=== PATIENT | female | born 1960 | race Caucasian/White ===

== ENCOUNTER → 2016-07-31 | Outpatient (REF) | payer MEDICARE, MEDICAID, OTHER ==
[2016-07-31 16:27] LABS: MEAN CORPUSCULAR HEMOGLOBIN 31.6 pg (27.0-33.0); MEAN CORPUSCULAR HGB CONC 33.3 g/dl (32.0-36.5); MEAN CORPUSCULAR VOLUME 94.7 fl (80.0-96.0); RED CELL DISTRIBUTION WIDTH 13.2 % (11.5-14.5); WHITE BLOOD COUNT 7.5 K/mm3 (4.0-10.0)
[2016-07-31 16:51] LABS: ALBUMIN 3.8 GM/DL (3.2-5.2); ALBUMIN/GLOBULIN RATIO 1.31 (1.00-1.93); ALKALINE PHOSPHATASE 97 U/L (45-117); ALT/SGPT 15 U/L (12-78); ANION GAP 9 MEQ/L (8-16); AST/SGOT 19 U/L (15-37); BILIRUBIN,TOTAL 0.6 MG/DL (0.2-1.0); BLOOD UREA NITROGEN 9 MG/DL (7-18); CALCIUM LEVEL 8.6 MG/DL (8.5-10.1); CARBON DIOXIDE LEVEL 30 MEQ/L (21-32); CHLORIDE LEVEL 102 MEQ/L (98-107); CHOLESTEROL LEVEL 185 MG/DL (<200); CREATININE FOR GFR 0.67 MG/DL (0.55-1.02); GLOMERULAR FILTRATION RATE > 60.0 (>51); GLUCOSE, FASTING 83 MG/DL (70-105); MAGNESIUM LEVEL 2.1 MG/DL (1.8-2.4); POTASSIUM SERUM 3.9 MEQ/L (3.5-5.1); SODIUM LEVEL 141 MEQ/L (136-145); TOTAL PROTEIN 6.7 GM/DL (6.4-8.2); TRIGLYCERIDES LEVEL 113 MG/DL (<150)
[2016-07-31 16:59] LABS: VITAMIN B12 LEVEL 791 PG/ML (247-911)
[2016-08-08 00:06] LABS: BENZODIAZEPINES, URINE SCREEN Negative ng/mL (Cutoff=200); METHADONE, URINE SCREEN Negative ng/mL (Cutoff=300); OPIATES, URINE Positive ng/mL (Cutoff=300); pH, URINE 5.9 (4.5-8.9)
== END ==
LOC: M SFHCLACO 09:56
PROVIDERS: ATTEND Physician Assistant
DX: Z00.00 Encounter for general adult medical examination without abnormal findings (principal); R60.9 Edema, unspecified; Z68.37 Body mass index [BMI] 37.0-37.9, adult; Z79.891 Long term (current) use of opiate analgesic; Z79.899 Other long term (current) drug therapy

== ENCOUNTER → 2016-08-31 | Outpatient (REF) | payer MEDICARE, MEDICAID, OTHER | LOC: M SFHCLACO 09:52 | PROVIDERS: ATTEND Physician Assistant | DX: Z01.411 Encounter for gynecological examination (general) (routine) with abnormal findings (principal); Z11.51 Encounter for screening for human papillomavirus (HPV); R87.611 Atypical squamous cells cannot exclude high grade squamous intraepithelial lesion on cytologic smear of cervix (ASC-H) | CPT/HCPCS: 82270; 87070; 87624; G0123 ==

== ENCOUNTER → 2017-03-22 | Outpatient (CLI) | payer MEDICARE ==
--- NOTE | 2017-03-22 11:12 | REP ---
Left lower extremity Duplex Doppler venous ultrasound: Real time compression and duplex Doppler interrogation of the left lower extremity deep venous system is performed. The left common femoral, superficial femoral and popliteal veins are fully compressible with transducer pressure and demonstrate normal spontaneous and phasic flow, without evidence of deep venous thrombosis. Impression: No evidence of deep venous thrombosis of the left lower extremity femoral popliteal venous system. There is an oval popliteal cyst 9.7 cm in craniocaudal dimension, and 1.3 cm in transverse diameter. Signed by Ameya Ramirez MD 03/22/2017 11:03 A
== END ==
LOC: M RAD 10:08
PROVIDERS: ATTEND Physician Assistant
DX: M79.605 Pain in left leg (principal)

== ENCOUNTER → 2017-10-17 | Outpatient (REF) | payer MEDICARE ==
[2017-10-17 15:14] LABS: TOTAL 25(OH) VITAMIN D 31.4 NG/ML (30.0-100.0)
[2017-10-17 15:15] LABS: VITAMIN B12 LEVEL 603 PG/ML (247-911)
[2017-10-17 15:19] LABS: ANION GAP 8 MEQ/L (8-16); BLOOD UREA NITROGEN 12 MG/DL (7-18); CALCIUM LEVEL 8.5 MG/DL (8.5-10.1); CARBON DIOXIDE LEVEL 27 MEQ/L (21-32); CHLORIDE LEVEL 107 MEQ/L (98-107); CREATININE FOR GFR 0.69 MG/DL (0.55-1.30); GLOMERULAR FILTRATION RATE > 60.0 (>51); GLUCOSE, FASTING 97 MG/DL (70-100); POTASSIUM SERUM 3.3 MEQ/L (3.5-5.1); SODIUM LEVEL 142 MEQ/L (136-145)
[2017-10-17 15:28] LABS: CREATININE, URINE 56.8 MG/DL; MALB URINE SIEMENS 6.2 MG/L; MAU/CREAT RATIO 10.9 MCG/MG (0.0-30.0)
[2017-10-24 00:11] LABS: AMPHETAMINE SCREEN, URINE Negative ng/mL (Cutoff=1000); BARBITURATES SCREEN, URINE Negative ng/mL (Cutoff=200); BENZODIAZEPINES, URINE SCREEN Negative ng/mL (Cutoff=200); CANNABINOID SCREEN, URINE Negative ng/mL (Cutoff=20); COCAINE SCREEN, URINE Negative ng/mL (Cutoff=300); CODEINE, URINE Negative (Cutoff=100); FENTANYL URINE SCREEN Negative pg/mL (Cutoff=2000); HYDROCODONE CONFIRM, URINE 1130 ng/mL (Cutoff=100); HYDROCODONE, URINE Positive (.); HYDROMORPHONE CONFIRM, URINE 199 ng/mL (Cutoff=100); HYDROMORPHONE, URINE Positive (.); METHADONE, URINE SCREEN Negative ng/mL (Cutoff=300); MORPHINE, URINE Negative (Cutoff=100); OPIATE SCREEN, URINE See Final Results ng/mL (Cutoff=300); OPIATES, URINE Positive ng/mL (Cutoff=300); OXYCODONE, SCREEN, URINE Negative ng/mL (Cutoff=100); PCP SCREEN, URINE Negative ng/mL (Cutoff=25); SPECIFIC GRAVITY, URINE 1.011 (.); pH, URINE 5.8 (4.5-8.9)
== END ==
LOC: M SFHCLACO 08:03
DX: R60.9 Edema, unspecified (principal); Z98.84 Bariatric surgery status; F41.8 Other specified anxiety disorders; Z79.899 Other long term (current) drug therapy
CPT/HCPCS: 82607

== ENCOUNTER → 2018-01-30 | Outpatient (REF) | payer MEDICARE, MEDICAID ==
[2018-01-30 14:52] LABS: ANION GAP 9 MEQ/L (8-16); BLOOD UREA NITROGEN 12 MG/DL (7-18); CARBON DIOXIDE LEVEL 28 MEQ/L (21-32); CHLORIDE LEVEL 105 MEQ/L (98-107); CREATININE FOR GFR 0.63 MG/DL (0.55-1.30); GLOMERULAR FILTRATION RATE > 60.0 (>51); GLUCOSE, FASTING 76 MG/DL (70-100); POTASSIUM SERUM 4.2 MEQ/L (3.5-5.1); SODIUM LEVEL 142 MEQ/L (136-145)
== END ==
LOC: M SFHCLACO 09:30
DX: R53.83 Other fatigue (principal); R60.9 Edema, unspecified; E87.6 Hypokalemia
CPT/HCPCS: 80048

== ENCOUNTER → 2018-03-27 | Outpatient (REF) | payer MEDICARE, MEDICAID ==
[2018-03-27 15:38] LABS: ANION GAP 8 MEQ/L (8-16); BLOOD UREA NITROGEN 10 MG/DL (7-18); CARBON DIOXIDE LEVEL 30 MEQ/L (21-32); CHLORIDE LEVEL 102 MEQ/L (98-107); CREATININE FOR GFR 0.61 MG/DL (0.55-1.30); GLOMERULAR FILTRATION RATE > 60.0 (>51); GLUCOSE, FASTING 84 MG/DL (70-100); POTASSIUM SERUM 3.7 MEQ/L (3.5-5.1); SODIUM LEVEL 140 MEQ/L (136-145)
== END ==
LOC: M LAB REF 15:03
DX: R60.9 Edema, unspecified (principal); E87.6 Hypokalemia
CPT/HCPCS: 80048

== ENCOUNTER → 2018-04-17 | Outpatient (CLI) | payer MEDICARE, MEDICAID ==
[2018-04-17 12:22] LABS: ANION GAP 7 MEQ/L (8-16); BLOOD UREA NITROGEN 7 MG/DL (7-18); CALCIUM LEVEL 8.6 MG/DL (8.5-10.1); CARBON DIOXIDE LEVEL 28 MEQ/L (21-32); CHLORIDE LEVEL 108 MEQ/L (98-107); CREATININE FOR GFR 0.64 MG/DL (0.55-1.30); GLOMERULAR FILTRATION RATE > 60.0 (>51); GLUCOSE, FASTING 91 MG/DL (70-100); POTASSIUM SERUM 4.2 MEQ/L (3.5-5.1); SODIUM LEVEL 143 MEQ/L (136-145)
== END ==
LOC: M LAB 11:08
DX: Z01.810 Encounter for preprocedural cardiovascular examination (principal); M17.12 Unilateral primary osteoarthritis, left knee; S83.212D Bucket-handle tear of medial meniscus, current injury, left knee, subsequent encounter
CPT/HCPCS: 93005

== ENCOUNTER → 2018-08-26 | Outpatient (REF) | payer MEDICARE, MEDICAID | LOC: M SFHCPLAZ 17:56 | PROVIDERS: ATTEND Dermatology | DX: C44.529 Squamous cell carcinoma of skin of other part of trunk (principal) ==

== ENCOUNTER → 2018-11-14 | Outpatient (REF) | payer MEDICARE ==
[2018-11-14 20:02] LABS: BASO % 0.4 % (0.0-1.0); EOS # 0.3 10^3/uL (0.0-0.50); EOS % 2.9 % (0.0-3.0); HEMATOCRIT 42.6 % (36.0-47.0); HEMOGLOBIN 14.1 g/dl (12.0-15.5); LYMPH # 2.2 10^3/uL (1.5-4.5); LYMPH % 25.5 % (24.0-44.0); MEAN CORPUSCULAR HEMOGLOBIN 30.7 pg (27.0-33.0); MEAN CORPUSCULAR HGB CONC 33.1 g/dl (32.0-36.5); MEAN CORPUSCULAR VOLUME 92.6 fl (80.0-96.0); MONO # 0.5 10^3/uL (0.0-0.8); MONO % 5.7 % (0.0-5.0); NEUTROPHILS # 5.6 10^3/uL (1.8-7.7); PLATELET COUNT, AUTOMATED 286 10^3/uL (150-450); WHITE BLOOD COUNT 8.5 10^3/uL (4.0-10.0)
[2018-11-14 20:04] LABS: ALBUMIN 3.8 GM/DL (3.2-5.2); ALT/SGPT 20 U/L (12-78); BILIRUBIN,TOTAL 0.4 MG/DL (0.2-1.0); BLOOD UREA NITROGEN 9 MG/DL (7-18); CALCIUM LEVEL 8.9 MG/DL (8.5-10.1); CARBON DIOXIDE LEVEL 36 MEQ/L (21-32); CHLORIDE LEVEL 102 MEQ/L (98-107); CHOLESTEROL LEVEL 202 MG/DL (<200); CHOLESTEROL RISK RATIO 3.607 (<5); GLOMERULAR FILTRATION RATE > 60.0 (>51); GLUCOSE, FASTING 77 MG/DL (70-100); HDL CHOLESTEROL 56 MG/DL (>40); IRON (FE) 73 UG/DL (50-170); LDL CHOLESTEROL 127 MG/DL (<100); NON-HDL-C 146 MG/DL; PERCENT SATURATION 18.7 % (13.2-45.0); POTASSIUM SERUM 3.9 MEQ/L (3.5-5.1); SODIUM LEVEL 139 MEQ/L (136-145); TOTAL IRON BINDING CAPACITY 391 UG/DL (250-450); TOTAL PROTEIN 7.2 GM/DL (6.4-8.2); TRIGLYCERIDES LEVEL 94 MG/DL (<150)
[2018-11-14 20:13] LABS: TOTAL 25(OH) VITAMIN D 29.1 NG/ML (30.0-100.0); VITAMIN B12 LEVEL 1097 PG/ML (247-911)
== END ==
LOC: M SFHCADAM 14:33
PROVIDERS: ATTEND Family Medicine
DX: Z98.84 Bariatric surgery status (principal)
CPT/HCPCS: 80053; 80061; 82306; 82607; 83550; 85025; G0463

== ENCOUNTER → 2019-03-16 | Outpatient (REF) | payer MEDICARE ==
[~2019-03-16] MED LIST: BACT800T5 PO; CVS1CAP5 PO; EFFE20TA PO; ESCI5SOL3 PO; HYDR-4514 PO; HYDR50TAB PO; LUNE2TAB23 PO; MULTCAP PO; NEUR600T PO; POTA10808 PO; VALA1TAB2 PO; VOLT1GEL15 TD; ZANA4CAP PO; [UNRECOGNIZED DRUG - CODE] PO; [UNRECOGNIZED DRUG - OTHER] PO
[2019-03-16 11:34] LABS: BLOOD UREA NITROGEN 13 MG/DL (7-18); CALCIUM LEVEL 8.7 MG/DL (8.5-10.1); CARBON DIOXIDE LEVEL 28 MEQ/L (21-32); CHLORIDE LEVEL 104 MEQ/L (98-107); CREATININE FOR GFR 0.75 MG/DL (0.55-1.30); GLOMERULAR FILTRATION RATE > 60.0 (>51); GLUCOSE, FASTING 117 MG/DL (70-100); SODIUM LEVEL 139 MEQ/L (136-145)
== END ==
LOC: M LABDRWAD 11:17
PROVIDERS: ATTEND Physician Assistant
DX: Z01.810 Encounter for preprocedural cardiovascular examination (principal); Z79.899 Other long term (current) drug therapy; T84.84XA Pain due to internal orthopedic prosthetic devices, implants and grafts, initial encounter

== ENCOUNTER → 2019-04-28 | Outpatient (REF) | payer MEDICARE, MEDICAID ==
[~2019-04-28] MED LIST changes: -VALA1TAB2 PO; +VALA1TAB64 PO
== END ==
LOC: M LAB REF 18:37
PROVIDERS: ATTEND Dermatology
DX: C44.629 Squamous cell carcinoma of skin of left upper limb, including shoulder (principal)

== ENCOUNTER → 2019-08-27 | Outpatient (REF) | payer MEDICARE, MEDICAID ==
[~2019-08-27] MED LIST changes: +VALA1TAB5 PO; -VALA1TAB64 PO
== END ==
LOC: M LAB REF 17:03
PROVIDERS: ATTEND Dermatology
DX: L90.5 Scar conditions and fibrosis of skin (principal)

== ENCOUNTER → 2020-04-18 | Outpatient (REF) | payer MEDICARE, MEDICAID ==
[~2020-04-18] MED LIST changes: +BIOT1CAP2 PO; +D31000TA2 PO; +ESCI20TA PO; +FLAX1CAP5 PO; +OCUVCAP2 PO; +OMEG10002 PO; +REST0.05 OD; +[UNRECOGNIZED DRUG - CODE] OP
[2020-04-18 16:30] LABS: BASO % 0.5 % (0.0-1.0); EOS # 0.3 10^3/uL (0.0-0.5); EOS % 3.5 % (0.0-3.0); HEMATOCRIT 43.1 % (36.0-47.0); HEMOGLOBIN 13.8 g/dl (12.0-15.5); LYMPH # 2.5 10^3/uL (1.5-5.0); LYMPH % 28.2 % (24.0-44.0); MEAN CORPUSCULAR HEMOGLOBIN 30.5 pg (27.0-33.0); MEAN CORPUSCULAR VOLUME 95.1 fl (80.0-96.0); MONO # 0.5 10^3/uL (0.0-0.8); MONO % 6.1 % (0.0-5.0); NEUTROPHILS # 5.5 10^3/uL (1.5-8.5); NEUTROPHILS % 61.5 % (36.0-66.0); PLATELET COUNT, AUTOMATED 281 10^3/uL (150-450); RED BLOOD COUNT 4.53 10^6/uL (4.00-5.40); WHITE BLOOD COUNT 8.9 10^3/uL (4.0-10.0)
[2020-04-18 16:42] LABS: INR 0.95; PROTHROMBIN TIME 12.9 SECONDS (12.5-14.3)
[2020-04-18 16:49] LABS: ALBUMIN 3.9 GM/DL (3.2-5.2); ALT/SGPT 17 U/L (12-78); BILIRUBIN,TOTAL 0.3 MG/DL (0.2-1.0); BLOOD UREA NITROGEN 9 MG/DL (7-18); CALCIUM LEVEL 9.2 MG/DL (8.5-10.1); CARBON DIOXIDE LEVEL 33 MEQ/L (21-32); CHLORIDE LEVEL 103 MEQ/L (98-107); CREATININE FOR GFR 0.71 MG/DL (0.55-1.30); GLOMERULAR FILTRATION RATE > 60.0 (>51); GLUCOSE, FASTING 87 MG/DL (70-100); POTASSIUM SERUM 3.9 MEQ/L (3.5-5.1); SODIUM LEVEL 140 MEQ/L (136-145); TOTAL PROTEIN 6.9 GM/DL (6.4-8.2)
[2020-04-18 17:24] LABS: ERYTHROCYTE SEDIMENTATION RATE 9 mm/hr (0-30)
== END ==
LOC: M SFHCADAM 13:53
PROVIDERS: ATTEND Family Medicine
DX: Z01.818 Encounter for other preprocedural examination (principal); M17.11 Unilateral primary osteoarthritis, right knee
CPT/HCPCS: 80053; 85025; 85610; 85652; G0463

== ENCOUNTER → 2020-04-30 | Outpatient (CLI) | payer MEDICARE, MEDICAID ==
[~2020-04-30] MED LIST changes: -ESCI20TA PO
== END ==
LOC: M LABSMTC 11:25
PROVIDERS: ATTEND Anesthesiology
DX: Z01.812 Encounter for preprocedural laboratory examination (principal); Z20.828 Contact with and (suspected) exposure to other viral communicable diseases

== ENCOUNTER 2020-05-04 07:30 | Inpatient (IN) | payer MEDICARE, MEDICAID ==
[~2020-05-04] VITALS: Ht 167.6 cm; Wt 99.4 kg
[~2020-05-04 07:30] MED LIST changes: +CLINDAMYCIN 900 MG in IV 1 EA IV ONE; +LR 1,000 ML IV ONE; +MIDAZOLAM INJ 2MG/2ML VIAL (J2250 PER 1MG) IV PRN; +fentaNYL 100 MCG/2 ML INJECTION (J3010) IV PRN
[2020-05-04] MEDS ORDERED: ESCI20TA PO (10:19)
[2020-05-04] MEDS ORDERED: fentaNYL 100 MCG/2 ML INJECTION (J3010) As Ordered ONE ×2 (11:26→14:09)
[2020-05-04] MEDS ORDERED: MIDAZOLAM INJ 2MG/2ML VIAL (J2250 PER 1MG) As Ordered ONE ×2 (11:26→14:10)
[2020-05-04] MEDS ORDERED: ROPIvacaine 0.5% 30ML INJECTION (J2795 PER 1MG) As Ordered ONE (11:38)
[2020-05-04] MEDS ORDERED: EPINEPHrine INJ 1 MG/ML 1ML AMP XX ONE (11:45)
[2020-05-04] MEDS ORDERED: LIDOCAINE 1% MDV 20ML VIAL XX ONE (11:45)
[2020-05-04] MEDS ORDERED: ROPIvacaine 0.5% 30ML INJECTION (J2795 PER 1MG) XX ONE (11:45)
[2020-05-04] MEDS ORDERED: EPINEPHrine INJ 1 MG/ML 1ML AMP As Ordered ONE (12:21)
[2020-05-04] MEDS ORDERED: TRANEXAMIC ACID 100 MG/ML 10ML VIAL As Ordered ONE (12:21)
[2020-05-04] MEDS ORDERED: BUPIVACAINE LIPOSOME/PF 1.3% 20ML VIAL (13.3MG/ML)(EXPAREL)(C9290 PER1MG) As Ordered ONE (12:21)
[2020-05-04] MEDS ORDERED: CLINDAMYCIN INJ 900MG/6ML VIAL As Ordered ONE (12:21)
[2020-05-04] MEDS ORDERED: BUPIVACAINE HCL 0.25% 10ML VIAL As Ordered ONE (12:22)
--- NOTE | 2020-05-04 13:58 | IPN ---
PROGRESS NOTE DATE: 05/04/2020 SUBJECTIVE AND PLAN: Patient seen and examined. She wishes to go ahead with a right total knee arthroplasty. She understands the nature of this, the risks of bleeding, infection, damage to nerves and vessels, persistent pain, correa loosening, blood clots, medical problems, among others.
[2020-05-04] MEDS ORDERED: propofoL 200 MG/20 ML VIAL As Ordered ONE (14:10)
[2020-05-04] MEDS ORDERED: ONDANSETRON 4MG/2ML VIAL As Ordered ONE (14:17)
[2020-05-04] MEDS ORDERED: ONDANSETRON 4MG/2ML VIAL IV PRN ×2 (15:00→16:00)
[2020-05-04] MEDS ORDERED: fentaNYL 100 MCG/2 ML INJECTION (J3010) IV PRN (15:00)
[2020-05-04] MEDS ORDERED: METOCLOPRAMIDE INJ 10MG/2ML VIAL (J2765 PER 1) IV PRN (15:00)
[2020-05-04] MEDS ORDERED: LR 1,000 ML IV SCH (15:00)
[2020-05-04] MEDS ORDERED: PERCOCET 5MG/325MG TAB PO PRN (15:00)
--- NOTE | 2020-05-04 15:15 | REP ---
INDICATION: POST OP IN PACU COMPARISON: None. TECHNIQUE: AP and cross-table lateral views. FINDINGS: Normal appearance and positioning to the femoral and tibial components. Overlying postsurgical changes and skin rodney noted. IMPRESSION: Status post right knee replacement. <Electronically signed by Coleman Hopkins > 05/04/20 [id number]
[2020-05-04 15:30] VITALS: BP 103/65
[2020-05-04] MEDS: LR 1,000 ML IV SCH (15:54)
[2020-05-04] MEDS ORDERED: MORPHINE 2 MG/ML 1ML VIAL (J2270) IV PRN (16:00)
[2020-05-04] MEDS ORDERED: MORPHINE 4 MG/ML 1ML VIAL/SYRINGE (J2270) IV PRN (16:00)
[2020-05-04] MEDS ORDERED: RAMELTEON 8 MG TAB (ROZEREM) PO PRN (16:15)
[2020-05-04] MEDS: VITAMIN D 1,000 INTERNATIONAL UNITS TABLET PO SCH (16:21)
[2020-05-04] MEDS: GABAPENTIN 300 MG CAP PO SCH ×2 (16:21→20:17)
[2020-05-04] MEDS: CYANOCOBALAMIN 500 MCG TAB PO SCH (16:21)
[2020-05-04 16:30] VITALS: BP 115/64
[2020-05-04 17:30] VITALS: BP 104/56
[2020-05-04] MEDS: PERCOCET 5MG/325MG TAB PO PRN (18:03)
--- NOTE | 2020-05-04 18:21 | RO ---
OPERATIVE NOTE DATE OF OPERATION: 05/04/2020 PREOPERATIVE DIAGNOSIS: Right knee osteoarthritis. POSTOPERATIVE DIAGNOSIS: Right knee osteoarthritis. PROCEDURE: Right total knee arthroplasty using an ATTUNE rotating platform, posterior stabilized size 5 femur, size 5 tibia with a 10 polyethylene 35 patellar button. SURGEON: Philippe Kwon MD METALLURGICAL ANALYST: ROBEL Ruby ANESTHESIA: Spinal. ESTIMATED BLOOD LOSS: 50 ml COMPLICATIONS: None. INDICATIONS: 59-year-old woman who has had some gradually worsening knee pain and wished to undergo knee replacement. Understood the nature and the risk associated with it. OPERATIVE PROCEDURE: The patient was taken to the operating room and placed in the supine position after spinal anesthesia was induced. The right lower extremity was prepped and draped in the usual sterile fashion. A time-out was performed. Tourniquet was inflated. A longitudinal incision was made over the anterior aspect of the knee. A medial parapatellar arthrotomy was performed. I everted the patella, flexed the knee up and used the canal initiating reamer on the femoral side followed by the intramedullary guide. The distal femoral cutting block was pinned in place. A distal femoral cut was made protecting soft tissues. I had done the medial release. I then sized the femur initially to be a 6. Drilled holes were placed in the end of the femur. She had very soft bone. I then placed the 6 cutting block and made the remaining cuts. I then prepared the tibial surface with the tibial alignment guide and the appropriate amount of posterior slop and valgus tendon placed 4 mm off the low side protecting soft tissues and made the proximal tibial cut. A financial accounting analyst was used to remove soft tissue and osteophytes from either side of the knee. I then decided to go ahead with a box cut on the femoral side because the PCL seemed to be largely deficient. The remaining three cuts were made for the box cut. I then trialed some spacer blocks and determined that it was a little tight in flexion with the 8 and 10 polyethylene and I felt it. There was some mismatch in terms of flexion and extension gaps, so I decided to downsize the femur to a 5 with referencing off the anterior aspect of the femur. The size 5 cutting block was secured and then the remaining posterior chamfer cuts and posterior condyle cuts were made. At this point, I re-sized it and a size 10 spacer seemed to be excellent in flexion and extension, excellent alignment and bounce. The tibial tray was prepared. The size 5 fit nicely. It was drilled and broached. The trial femoral component was placed and the trial polyethylene size 5, 10 thickness and this had excellent range of motion, excellent stability and soft tissue bounce. I then prepared the patella, free hand cut, removing about 7 mm of bone. Sized the patella to be a 35. The drill holes were placed and the drill holes were placed at the end of the femur. The patella tracked very nicely. I then removed the trial component to irrigate it, dried the bony surfaces. I also injected Exparel in the deep tissues. Once the cement was prepared by the assistant director of residence life, I then cemented in the components removing excess bone cement. The polyethylene was inserted. The knee was brought out in extension. The patella was cemented in place, held in place with a patellar clamp. I then irrigated, placed the TXA in the deep tissues. I begin closing the deep layer with #1 Vicryl suture and running STRATAFIX. I then removed the patellar clamp once the cement was hardened and irrigated in the deep tissues again. Repair the remaining deep tissues with running STRATAFIX suture, irrigated, closed the subcutaneous tissue with 2-0 Vicryl and the skin rodney. A sterile dressing was applied. The tourniquet had been inflated once the cement had hardened. She was taken to the recovery room in stable condition. There were no known complications. The plan will be routine postop. The assistant director of residence life was instrumental in holding retractors and insisting in mixing the bone cement and assisting I wound closure.
[2020-05-04 18:30] VITALS: BP 99/55
--- NOTE | 2020-05-04 18:56 | HPEPDOC ---
General Date of Admission May 04, 2020 at 09:37 Date of Service: May 04, 2020 Chief Complaint The patient is a 59-year-old female admitted with a reason for visit of Osteoarthritis Right Knee. Source: Patient History of Present Illness Consultation report Consultation requested by orthopedics. Consultation for management of medical comorbidities HPI: 59 year old female admitted to the orthopedic service for elective right total knee arthroplasty for advanced osteoarthritis. Her surgery was uneventful. Hospitalist consulted for management of her medical comorbidities. Now she is complaining of pain in the right knee surgical site, sharp throbbing constant about 4/10 in intensity appropriate for the surgery. No radiation. Home Medications Scheduled Biotin (Biotin) 1 Mg Capsule, 1 MG PO DAILY, (Reported) C,E,Zinc,Copper 24/Om3/Lut/[place] (Ocuvite Adult 50 Plus Softgel) 1 Each Capsule, 1 CAP PO DAILY, (Reported) Cholecalciferol (Vitamin D3) (Vitamin D3) 1,000 Unit Tablet, 1,000 UNITS PO DAILY, (Reported) Cyanocobalamin (Vitamin B-12) (Vitamin B-12) 1,000 Mcg Tablet.er, 1,000 MCG PO DAILY, (Reported) Cyclosporine (Restasis) 0.05% Droperette, 1 DROP OD BID, (Reported) Diclofenac Sodium (Voltaren) 100 Gm Gel..gram., 1 % TD ASDIRECTED, (Reported) Escitalopram Oxalate (Escitalopram Oxalate) 20 Mg Tablet, 2 TAB PO DAILY, (Reported) Eszopiclone (Lunesta) 2 Mg Tablet, 3 MG PO QPM, (Reported) Flaxseed Oil (Flaxseed Oil) 1,000 Mg Capsule, 1 CAP PO DAILY, (Reported) Gabapentin (Neurontin) 600 Mg Tablet, 300 MG PO TID, (Reported) Hydrochlorothiazide (Hydrochlorothiazide) 50 Mg Tablet, 25 MG PO DAILY, (Reported) Lactobacillus Combination No.4 (Probiotic) 1 Each Capsule, 1 CAP PO DAILY, (Reported) Multivitamin (Multivitamins) 1 Each Capsule, 1 CAP PO DAILY, (Reported) Morrison-3/Dha/Epa/Fish Oil (Fish Oil 1,000 mg Softgel) 1 Each Capsule, 1 CAP PO DAILY, (Reported) Tizanidine HCl (Zanaflex) 4 Mg Capsule, 4 MG PO TID, (Reported) Valacyclovir HCl (Valacyclovir) 1,000 Mg Tablet, 1 GM PO DAILY, (Reported) Scheduled PRN Hydrocodone/Acetaminophen (Hydrocodone-Acetamin 7.5-325) 1 Each Tablet, 1 TAB PO Q6HP PRN for PAIN, (Reported) Miscellaneous Medications Carboxymethyl/Gly/Poly80/Pf (Refresh Optive Preston-3 Drops) 1 Each Droperette, 1 JERE OP, (Reported) Allergies Coded Allergies: Penicillins (Verified Allergy, Mild, fever blisters, 05/04/20) pregabalin (Verified Allergy, Mild, fever blisters, 05/04/20) Past Medical History Medical History H/O Morbid obesity s/p gastric bypass OSTEOARTHRITIS ANXIETY AND DEPRESSION HERPES SIMPLEX TYPE I HISTORY OF CARPAL TUNNEL SYNDROME ON THE RIGHT SQUAMOUS CELL CARCINOMA SKIN OF R SIDE OF CHEST, AND L POSTERIOR SHOULDER HYPERLIPIDEMIA CERVICALGIA, S/P SURGERY AT C6-7 IN 2010, NERVE DAMAGE CAUSES PAIN IN NECK, SHOULDERS, ARMS, HANDS, HEAD Surgical History CHOLECYSTECTOMY 2011 C-SPINE SURGERY C6-7 2010 PLASTIC SURGERY ON ABDOMEN AND BREAST 2008 GASTRIC BYPASS 2007 RIGHT BUNIONECTOMY 1999 TUBAL LIGATION 1998 TONSILLECTOMY 1982 WISDOM TEETH EXTRACTION (1 UPPER RIGHT) 2019 Family History FATHER: 68 YRS, POLYARTERITIS NODOSA MOTHER: 76 YRS, HEART ATTACK, HYPERTENSION MATERNAL GRANDMOTHER WITH DIABETES, PATERNAL AUNT WITH BREAST CANCER A-FIB/CHADSVASC A-FIB History Current/History of A-Fib/PAF?: No Review of Systems Constitutional: Denies: Chills, Fever, Night Sweats Eyes: Denies: Pain, Vision change ENT: Denies: Head Aches, Ear Pain, Dysphagia Skin: Denies: Rash, Lesions, Breakdown Pulmonary: Denies: Dyspnea, Cough Cardiovascular: Denies: Chest Pain, Palpitations, Orthopnea, Paroxysmal Noc. Dyspnea, Lt Headedness Gastrointestinal: Reports: Nausea Genitourinary: Denies: Dysuria, Frequency, Incontinence, Retention Hematologic: Denies: Bruising, Bleeding Excessively Musculoskeletal: Reports: Neck Pain, Shoulder Pain, Arm Pain, Hand Pain, Joint Pain, Muscle Pain Physical Examination General Exam: Positive: Alert, Cooperative, No Acute Distress Eye Exam: Positive: PERRLA, Conjunctiva & lids normal, EOMI; Negative: Sclera icteric ENT Exam: Positive: Atraumatic, Mucous membr. moist/pink, Pharynx Normal Neck Exam: Positive: Supple; Negative: JVD, thyromegaly Chest Exam: Positive: Clear to auscultation, Normal air movement Heart Exam: Positive: Rate Normal, Regular Rhythm, Normal S1, Normal S2; Negative: Murmurs, Rubs Abdomen Exam: Positive: Normal bowel sounds, Soft; Negative: Tenderness, Hepatospenomegaly Extremity Exam: Positive: Normal pulses; Negative: Clubbing, Cyanosis, Edema Vital Signs Vital Signs Date Time Temp Pulse Resp B/P (MAP) Pulse Ox O2 Delivery O2 Flow Rate FiO2 05/04/20 14:50 62 18 107/55 (72) 96 Nasal Cannula 2 05/04/20 14:35 97.2 Assessment/Plan 59 year old female admitted to the orthopedic service for elective right total knee arthroplasty for advanced osteoarthritis. Her surgery was uneventful. Hospitalist consulted for management of her medical comorbidities. S/p right total knee replacement. pain control as per ortho DVT prophylaxis as per ortho. PT/OT H/O Morbid obesity s/p gastric bypass continue Vitamins. ANXIETY AND DEPRESSION continue Escitalopram HERPES SIMPLEX TYPE I valcyclovir HYPERLIPIDEMIA on omega 3 fatty acid can restart on discharge. CERVICALGIA, S/P SURGERY AT C6-7 IN 2010, NERVE DAMAGE CAUSES PAIN IN NECK, SHOULDERS, ARMS, HANDS, HEAD HISTORY OF CARPAL TUNNEL SYNDROME ON THE RIGHT continue gabapentin Plan / VTE VTE Prophylaxis Ordered?: Yes KRISTOPHER RICH MD May 04, 2020 15:22
[2020-05-04] MEDS: ACETAMINOPHEN TAB 650MG DOSE (2X325MG) PO PRN (20:18)
[2020-05-04] MEDS: CLINDAMYCIN 900 MG in IV 1 EA IV SCH (20:18)
[2020-05-04] MEDS: RESTASIS 0.05% OD SCH (20:19)
[2020-05-04] MEDS: OPTHALMIC OD SCH (20:19)
[2020-05-04 22:00] VITALS: BP 100/53
[2020-05-05] VITALS (7 sets, daily range): BP systolic 110–123; BP diastolic 70–82
[2020-05-05] MEDS: PERCOCET 5MG/325MG TAB PO PRN ×5 (00:54→18:51)
[2020-05-05] MEDS: CLINDAMYCIN 900 MG in IV 1 EA IV SCH (05:29)
[2020-05-05 05:55] LABS: HEMATOCRIT 37.2 % (36.0-47.0); HEMOGLOBIN 12.4 g/dl (12.0-15.5); MEAN CORPUSCULAR HEMOGLOBIN 31.7 pg (27.0-33.0); MEAN CORPUSCULAR HGB CONC 33.3 g/dl (32.0-36.5); MEAN CORPUSCULAR VOLUME 95.1 fl (80.0-96.0); PLATELET COUNT, AUTOMATED 230 10^3/uL (150-450); RED BLOOD COUNT 3.91 10^6/uL (4.00-5.40); WHITE BLOOD COUNT 8.5 10^3/uL (4.0-10.0)
[2020-05-05] MEDS: LR 1,000 ML IV SCH (06:18)
[2020-05-05] MEDS ORDERED: XARE10TA PO (06:41)
[2020-05-05] MEDS ORDERED: PERC5TAB12 PO (06:41)
[2020-05-05 07:48] LABS: BLOOD UREA NITROGEN 8 MG/DL (7-18); CALCIUM LEVEL 8.7 MG/DL (8.5-10.1); CARBON DIOXIDE LEVEL 31 MEQ/L (21-32); CHLORIDE LEVEL 105 MEQ/L (98-107); CREATININE FOR GFR 0.76 MG/DL (0.55-1.30); GLOMERULAR FILTRATION RATE > 60.0 (>51); GLUCOSE, FASTING 96 MG/DL (70-100); POTASSIUM SERUM 4.3 MEQ/L (3.5-5.1); SODIUM LEVEL 140 MEQ/L (136-145)
[2020-05-05] MEDS: CYANOCOBALAMIN 500 MCG TAB PO SCH (07:50)
[2020-05-05] MEDS: valACYclovir HCL 500 MG TAB PO SCH (07:51)
[2020-05-05] MEDS: MORPHINE 15 MG SA TAB PO SCH ×2 (07:53→20:36)
[2020-05-05] MEDS: OCUVITE 1 TAB PO SCH (07:53)
[2020-05-05] MEDS: VITAMIN D 1,000 INTERNATIONAL UNITS TABLET PO SCH (07:53)
[2020-05-05] MEDS: GABAPENTIN 300 MG CAP PO SCH ×3 (07:53→20:36)
[2020-05-05] MEDS: hydroCHLOROthiazide 25 MG TAB PO SCH (07:54)
[2020-05-05] MEDS: RESTASIS 0.05% OD SCH ×2 (07:54→20:35)
[2020-05-05] MEDS: OPTHALMIC OD SCH ×2 (07:54→20:35)
[2020-05-05] MEDS: MIRALAX *UNIT DOSE* 17GM PACKET PO SCH (07:55)
[2020-05-05] MEDS: MOM 30ML SUSPENSION UDC PO SCH (07:56)
--- NOTE | 2020-05-05 10:35 | IPNPDOC ---
Subjective Date Seen The patient was seen on 05/05/20. Subjective Chief Complaint/HPI Continues to have uncontrolled knee pain. Reports that it was very bad last night and she could not sleep at all. Low grade fever last night. Objective Physical Examination General Exam: Positive: Alert, Cooperative, No Acute Distress Eye Exam: Positive: PERRLA, Conjunctiva & lids normal, EOMI; Negative: Sclera icteric ENT Exam: Positive: Atraumatic, Mucous membr. moist/pink, Pharynx Normal Neck Exam: Positive: Supple; Negative: JVD, thyromegaly Chest Exam: Positive: Clear to auscultation, Normal air movement Heart Exam: Positive: Rate Normal, Regular Rhythm, Normal S1, Normal S2; Negative: Murmurs, Rubs Abdomen Exam: Positive: Normal bowel sounds, Soft; Negative: Tenderness, Hepatospenomegaly Extremity Exam: Positive: Normal pulses; Negative: Clubbing, Cyanosis, Edema Assessment /Plan Assessment 59 year old female admitted to the orthopedic service for elective right total knee arthroplasty for advanced osteoarthritis. Her surgery was uneventful. Hospitalist consulted for management of her medical comorbidities. S/p right total knee replacement. pain control as per ortho DVT prophylaxis as per ortho. PT/OT H/O Morbid obesity s/p gastric bypass continue Vitamins. ANXIETY AND DEPRESSION continue Escitalopram HERPES SIMPLEX TYPE I valcyclovir HYPERLIPIDEMIA on omega 3 fatty acid can restart on discharge. CERVICALGIA, S/P SURGERY AT C6-7 IN 2011, NERVE DAMAGE CAUSES PAIN IN NECK, SHOULDERS, ARMS, HANDS, HEAD HISTORY OF CARPAL TUNNEL SYNDROME ON THE RIGHT continue gabapentin Plan/VTE VTE Prophylaxis Ordered?: Yes VS, I&O, 24H, Fishbone Vital Signs/I&O Vital Signs Date Time Temp Pulse Resp B/P (MAP) Pulse Ox O2 Delivery O2 Flow Rate FiO2 05/05/20 10:00 98.2 71 17 120/82 (95) 97 Room Air 05/04/20 14:35 3 I&O- Last 24 Hours up to 6 AM 05/05/20 06:00 Intake Total 3290 ml Output Total 1450 ml Balance 1840 ml Laboratory Data 24H LABS Laboratory Tests 2 05/05/20 05:31: Nucleated Red Blood Cells % (auto) 0.0 05/05/20 05:32: Anion Gap 4L, Glomerular Filtration Rate > 60.0, Calcium Level 8.7 CBC/BMP Laboratory Tests 05/05/20 05:31 05/05/20 05:32 KRISTOPHER RICH MD May 05, 2020 10:35
[2020-05-05] MEDS: ESCITALOPRAM OXALATE 10 MG TAB (LEXAPRO) PO SCH (12:34)
[2020-05-05] MEDS: ACETAMINOPHEN TAB 650MG DOSE (2X325MG) PO PRN (12:37)
[2020-05-05] MEDS ORDERED: RIVAROXABAN 10 MG TAB (XARELTO) PO SCH (18:00)
[2020-05-05] MEDS ORDERED: zolPIDEM TARTRATE 5 MG TAB PO PRN (21:00)
[2020-05-06] MEDS: PERCOCET 5MG/325MG TAB PO PRN ×4 (03:00→15:58)
[2020-05-06 06:01] VITALS: BP 117/72
[2020-05-06] MEDS: ACETAMINOPHEN TAB 650MG DOSE (2X325MG) PO PRN (06:25)
[2020-05-06 06:46] LABS: HEMATOCRIT 34.4 % (36.0-47.0); HEMOGLOBIN 11.4 g/dl (12.0-15.5); MEAN CORPUSCULAR HEMOGLOBIN 31.6 pg (27.0-33.0); MEAN CORPUSCULAR HGB CONC 33.1 g/dl (32.0-36.5); MEAN CORPUSCULAR VOLUME 95.3 fl (80.0-96.0); PLATELET COUNT, AUTOMATED 181 10^3/uL (150-450); RED BLOOD COUNT 3.61 10^6/uL (4.00-5.40); WHITE BLOOD COUNT 7.7 10^3/uL (4.0-10.0)
[2020-05-06] MEDS ORDERED: MORP15TASA PO (08:24)
[2020-05-06] MEDS: RESTASIS 0.05% OD SCH (08:28)
[2020-05-06] MEDS: OPTHALMIC OD SCH (08:28)
[2020-05-06] MEDS: hydroCHLOROthiazide 25 MG TAB PO SCH (08:32)
[2020-05-06] MEDS: GABAPENTIN 300 MG CAP PO SCH ×2 (08:33→15:19)
[2020-05-06] MEDS: ESCITALOPRAM OXALATE 10 MG TAB (LEXAPRO) PO SCH (08:33)
[2020-05-06] MEDS: valACYclovir HCL 500 MG TAB PO SCH (08:34)
[2020-05-06] MEDS: CYANOCOBALAMIN 500 MCG TAB PO SCH (08:34)
[2020-05-06] MEDS: MORPHINE 15 MG SA TAB PO SCH (08:35)
[2020-05-06] MEDS: VITAMIN D 1,000 INTERNATIONAL UNITS TABLET PO SCH (08:36)
[2020-05-06] MEDS: OCUVITE 1 TAB PO SCH (08:36)
[2020-05-06] MEDS: MIRALAX *UNIT DOSE* 17GM PACKET PO SCH (08:37)
[2020-05-06] MEDS: MOM 30ML SUSPENSION UDC PO SCH (08:37)
[2020-05-06] MEDS ORDERED: FLUBLOK(EGG FREE)(QUAD)INFLUENZA VACC 0.5ML SYRINGE 18YRS & OLDER IM ONE (09:00)
--- NOTE | 2020-05-06 11:21 | IPNPDOC ---
Subjective Date Seen The patient was seen on 05/06/20. Subjective Chief Complaint/HPI Still having significant amount of pain at the right knee. Will be working with PT. Objective Physical Examination General Exam: Positive: Alert, Cooperative, No Acute Distress Eye Exam: Positive: PERRLA, Conjunctiva & lids normal, EOMI; Negative: Sclera icteric ENT Exam: Positive: Atraumatic, Mucous membr. moist/pink, Pharynx Normal Neck Exam: Positive: Supple; Negative: JVD, thyromegaly Chest Exam: Positive: Clear to auscultation, Normal air movement Heart Exam: Positive: Rate Normal, Regular Rhythm, Normal S1, Normal S2; Negative: Murmurs, Rubs Abdomen Exam: Positive: Normal bowel sounds, Soft; Negative: Tenderness, Hepatospenomegaly Extremity Exam: Negative: Clubbing, Cyanosis, Edema Assessment /Plan Assessment 59 year old female admitted to the orthopedic service for elective right total knee arthroplasty for advanced osteoarthritis. Her surgery was uneventful. Hospitalist consulted for management of her medical comorbidities. S/p right total knee replacement. pain control as per ortho DVT prophylaxis as per ortho. PT/OT H/O Morbid obesity s/p gastric bypass continue Vitamins. ANXIETY AND DEPRESSION continue Escitalopram HERPES SIMPLEX TYPE I valcyclovir HYPERLIPIDEMIA on omega 3 fatty acid can restart on discharge. CERVICALGIA, S/P SURGERY AT C6-7 IN 2010, NERVE DAMAGE CAUSES PAIN IN NECK, SHOULDERS, ARMS, HANDS, HEAD HISTORY OF CARPAL TUNNEL SYNDROME ON THE RIGHT continue gabapentin Plan/VTE VTE Prophylaxis Ordered?: Yes VS, I&O, 24H, Fishbone Vital Signs/I&O Vital Signs Date Time Temp Pulse Resp B/P (MAP) Pulse Ox O2 Delivery O2 Flow Rate FiO2 05/06/20 08:35 16 05/06/20 06:01 98.0 75 117/72 (87) 96 Room Air 05/04/20 14:35 3 I&O- Last 24 Hours up to 6 AM 05/06/20 06:00 Intake Total 1440 ml Output Total 0 ml Balance 1440 ml Laboratory Data 24H LABS Laboratory Tests 2 05/06/20 06:20: Nucleated Red Blood Cells % (auto) 0.0 CBC/BMP Laboratory Tests 05/06/20 06:20 KRISTOPHER RICH MD May 06, 2020 11:21
== END 2020-05-06 16:25 | disposition home or self-care (01) | DRG 470 ==
LOC: M OR 09:37 → M MS5PR 15:36
PROVIDERS: ADMIT Orthopaedic Surgery; ATTEND Orthopaedic Surgery
PROC: 0SRC0J9 Replacement of Right Knee Joint with Synthetic Substitute, Cemented, Open Approach (ICD-10-PCS; principal; 2020-05-04 12:05)
DX: M17.11 Unilateral primary osteoarthritis, right knee (principal); F41.9 Anxiety disorder, unspecified; F32.9 Major depressive disorder, single episode, unspecified; E78.5 Hyperlipidemia, unspecified; M54.2 Cervicalgia; Z90.49 Acquired absence of other specified parts of digestive tract; B00.9 Herpesviral infection, unspecified; Z98.84 Bariatric surgery status; Z85.828 Personal history of other malignant neoplasm of skin; Z79.899 Other long term (current) drug therapy; Z88.0 Allergy status to penicillin; Z88.8 Allergy status to other drugs, medicaments and biological substances

== ENCOUNTER → 2020-09-12 | Outpatient (REF) | payer MEDICARE, MEDICAID ==
[~2020-09-12] MED LIST changes: -CLINDAMYCIN 900 MG in IV 1 EA IV ONE; +ESCI20TA16 PO; -LR 1,000 ML IV ONE; -MIDAZOLAM INJ 2MG/2ML VIAL (J2250 PER 1MG) IV PRN; +MORP15TASA PO; +PERC5TAB12 PO; +XARE10TA PO; -fentaNYL 100 MCG/2 ML INJECTION (J3010) IV PRN
== END ==
LOC: M LAB REF 14:26
PROVIDERS: ATTEND Dermatology
DX: D23.39 Other benign neoplasm of skin of other parts of face (principal)

== ENCOUNTER → 2020-10-03 | Outpatient (REF) | payer MEDICARE, MEDICAID ==
[2020-10-03 12:55] LABS: BASO # 0.1 10^3/uL (0.0-0.2); BASO % 0.5 % (0.0-1.0); EOS # 0.4 10^3/uL (0.0-0.5); EOS % 3.6 % (0.0-3.0); HEMATOCRIT 43.1 % (36.0-47.0); HEMOGLOBIN 13.9 g/dl (12.0-15.5); LYMPH # 2.1 10^3/uL (1.5-5.0); LYMPH % 19.9 % (24.0-44.0); MEAN CORPUSCULAR HEMOGLOBIN 30.5 pg (27.0-33.0); MEAN CORPUSCULAR HGB CONC 32.3 g/dl (32.0-36.5); MEAN CORPUSCULAR VOLUME 94.5 fl (80.0-96.0); MONO # 0.5 10^3/uL (0.0-0.8); MONO % 4.7 % (2.0-8.0); NEUTROPHILS # 7.3 10^3/uL (1.5-8.5); PLATELET COUNT, AUTOMATED 263 10^3/uL (150-450); RED BLOOD COUNT 4.56 10^6/uL (4.00-5.40); WHITE BLOOD COUNT 10.3 10^3/uL (4.0-10.0)
[2020-10-03 14:05] LABS: ALBUMIN 4.2 GM/DL (3.2-5.2); ALT/SGPT 19 U/L (12-78); BILIRUBIN,TOTAL 0.7 MG/DL (0.2-1.0); BLOOD UREA NITROGEN 14 MG/DL (7-18); CALCIUM LEVEL 9.8 MG/DL (8.5-10.1); CARBON DIOXIDE LEVEL 30 MEQ/L (21-32); CHLORIDE LEVEL 104 MEQ/L (98-107); CHOLESTEROL LEVEL 223 MG/DL (<200); CHOLESTEROL RISK RATIO 3.716 (<5); CREATININE FOR GFR 0.58 MG/DL (0.55-1.30); GLOMERULAR FILTRATION RATE > 60.0 (>51); GLUCOSE, FASTING 93 MG/DL (70-100); HDL CHOLESTEROL 60 MG/DL (>40); LDL CHOLESTEROL 139 MG/DL (<100); NON-HDL-C 163 MG/DL; POTASSIUM SERUM 4.1 MEQ/L (3.5-5.1); SODIUM LEVEL 140 MEQ/L (136-145); THYROID STIMULATING HORMONE 0.773 uIU/ML (0.358-3.740); TOTAL 25(OH) VITAMIN D 37.2 NG/ML (30.0-100.0); TRIGLYCERIDES LEVEL 122 MG/DL (<150)
[2020-10-03 18:33] LABS: HEMOGLOBIN A1c 5.4 %
== END ==
LOC: M SFHCADAM 11:21
PROVIDERS: ATTEND Physician Assistant Medical
DX: E78.00 Pure hypercholesterolemia, unspecified (principal); M50.30 Other cervical disc degeneration, unspecified cervical region; F41.8 Other specified anxiety disorders; E66.01 Morbid (severe) obesity due to excess calories; F51.01 Primary insomnia; Z12.11 Encounter for screening for malignant neoplasm of colon; Z12.12 Encounter for screening for malignant neoplasm of rectum; Z79.899 Other long term (current) drug therapy
CPT/HCPCS: 80053; 80061; 82306; 83036; 84443; 85025; 90715; G0463

== ENCOUNTER → 2021-07-12 | Outpatient (REF) | payer MEDICARE, MEDICAID ==
[2021-07-12 16:34] LABS: PLATELET COUNT, AUTOMATED 276 10^3/uL (150-450)
[2021-07-12 17:22] LABS: INR 0.92; PROTHROMBIN TIME 12.8 SECONDS (12.7-14.5)
[2021-07-12 17:23] LABS: PARTIAL THROMBOPLASTIN TIME 29.2 SECONDS (25.9-37.0)
== END ==
LOC: M LABDRWAD 15:56
PROVIDERS: ATTEND Physician Assistant
DX: M51.36 Other intervertebral disc degeneration, lumbar region (principal); Z79.01 Long term (current) use of anticoagulants

== ENCOUNTER → 2021-11-14 | Outpatient (REF) | payer MEDICARE, MEDICAID ==
[~2021-11-14] MED LIST changes: -D31000TA2 PO; +VITA100093 PO
[2021-11-14 13:08] LABS: BASO # 0.1 10^3/uL (0.0-0.2); BASO % 0.7 % (0.0-1.0); EOS # 0.3 10^3/uL (0.0-0.5); EOS % 3.9 % (0.0-3.0); HEMATOCRIT 44.3 % (36.0-47.0); HEMOGLOBIN 14.5 g/dl (12.0-15.5); LYMPH # 2.1 10^3/uL (1.5-5.0); LYMPH % 24.2 % (24.0-44.0); MEAN CORPUSCULAR HEMOGLOBIN 30.7 pg (27.0-33.0); MEAN CORPUSCULAR HGB CONC 32.7 g/dl (32.0-36.5); MEAN CORPUSCULAR VOLUME 93.7 fl (80.0-96.0); MONO # 0.5 10^3/uL (0.0-0.8); MONO % 6.2 % (2.0-8.0); NEUTROPHILS # 5.5 10^3/uL (1.5-8.5); NEUTROPHILS % 64.6 % (36.0-66.0); PLATELET COUNT, AUTOMATED 244 10^3/uL (150-450); RED BLOOD COUNT 4.73 10^6/uL (4.00-5.40); WHITE BLOOD COUNT 8.5 10^3/uL (4.0-10.0)
[2021-11-14 13:46] LABS: ALBUMIN 3.9 GM/DL (3.2-5.2); ALT/SGPT 17 U/L (12-78); BILIRUBIN,TOTAL 0.7 MG/DL (0.2-1.0); BLOOD UREA NITROGEN 9 MG/DL (7-18); CALCIUM LEVEL 9.4 MG/DL (8.8-10.2); CARBON DIOXIDE LEVEL 32 MEQ/L (21-32); CHLORIDE LEVEL 104 MEQ/L (98-107); CHOLESTEROL LEVEL 236 MG/DL (<200); CHOLESTEROL RISK RATIO 4.452 (<5); CREATININE FOR GFR 0.67 MG/DL (0.55-1.30); FERRITIN 35 NG/ML (8-252); FREE T4 0.88 NG/DL (0.76-1.46); GLOMERULAR FILTRATION RATE > 60.0 (>45); GLUCOSE, FASTING 82 MG/DL (70-100); HDL CHOLESTEROL 53 MG/DL (>40); IRON (FE) 78 UG/DL (50-170); LDL CHOLESTEROL 156 MG/DL (<100); NON-HDL-C 183 MG/DL; PERCENT SATURATION 20.2 % (13.2-45.0); POTASSIUM SERUM 3.8 MEQ/L (3.5-5.1); SODIUM LEVEL 140 MEQ/L (136-145); THYROID STIMULATING HORMONE 0.852 uIU/ML (0.358-3.740); TOTAL IRON BINDING CAPACITY 386 UG/DL (250-450); TOTAL PROTEIN 7.2 GM/DL (6.4-8.2); TRIGLYCERIDES LEVEL 134 MG/DL (<150)
[2021-11-14 13:47] LABS: FOLATE 21.1 NG/ML; TOTAL 25(OH) VITAMIN D 34.1 NG/ML (30.0-100.0); VITAMIN B12 LEVEL 614 PG/ML
[2021-11-24 10:09] LABS: CODEINE, URINE Negative (Cutoff=100); CREATININE, URINE 42.7 mg/dL (20.0-300.0); HYDROCODONE CONFIRM, URINE 406 ng/mL (Cutoff=100); HYDROCODONE, URINE Positive (.); HYDROMORPHONE, URINE Comment: (.); MORPHINE, URINE Negative (Cutoff=100); OPIATES, URINE Positive ng/mL (Cutoff=300)
== END ==
LOC: M SFHCADAM 10:55
PROVIDERS: ATTEND Physician Assistant Medical
DX: F41.8 Other specified anxiety disorders (principal); E66.01 Morbid (severe) obesity due to excess calories; F11.90 Opioid use, unspecified, uncomplicated; F51.01 Primary insomnia; E78.00 Pure hypercholesterolemia, unspecified; E61.1 Iron deficiency; E53.8 Deficiency of other specified B group vitamins; Z79.899 Other long term (current) drug therapy

== ENCOUNTER → 2022-08-06 | Outpatient (REF) | payer MEDICARE, MEDICAID ==
[2022-08-06 16:26] LABS: BASO # 0.1 10^3/uL (0.0-0.2); BASO % 0.5 % (0.0-1.0); EOS # 0.3 10^3/uL (0.0-0.5); EOS % 2.9 % (0.0-3.0); HEMATOCRIT 44.4 % (36.0-47.0); HEMOGLOBIN 14.5 g/dl (12.0-15.5); LYMPH % 21.3 % (24.0-44.0); MEAN CORPUSCULAR HEMOGLOBIN 30.9 pg (27.0-33.0); MEAN CORPUSCULAR HGB CONC 32.7 g/dl (32.0-36.5); MEAN CORPUSCULAR VOLUME 94.7 fl (80.0-96.0); MONO # 0.6 10^3/uL (0.0-0.8); MONO % 6.3 % (2.0-8.0); NEUTROPHILS # 6.6 10^3/uL (1.5-8.5); NEUTROPHILS % 68.8 % (36.0-66.0); PLATELET COUNT, AUTOMATED 265 10^3/uL (150-450); RED BLOOD COUNT 4.69 10^6/uL (4.00-5.40); WHITE BLOOD COUNT 9.6 10^3/uL (4.0-10.0)
[2022-08-06 16:53] LABS: THYROID STIMULATING HORMONE 0.828 uIU/ML (0.55-4.78)
[2022-08-06 16:54] LABS: TOTAL 25(OH) VITAMIN D 46.1 NG/ML (20.0-100.0)
[2022-08-06 17:01] LABS: HEMOGLOBIN A1c 5.2 % (4.0-6.0)
[2022-08-06 17:05] LABS: ALBUMIN 3.8 G/DL (3.2-5.2); ALKALINE PHOSPHATASE 139 U/L (46-116); ALT/SGPT 40 U/L (7.0-40); AST/SGOT 34 U/L (<34); BILIRUBIN,TOTAL 0.5 MG/DL (0.3-1.2); BLOOD UREA NITROGEN 10 MG/DL (9-23); CALCIUM LEVEL 8.9 MG/DL (8.3-10.6); CARBON DIOXIDE LEVEL 32 MMOL/L (20-31); CHLORIDE LEVEL 102 MMOL/L (98-107); CHOLESTEROL LEVEL 183 MG/DL (<200); CHOLESTEROL RISK RATIO 5.09 (<5); CREATININE FOR GFR 0.59 MG/DL (0.55-1.30); GLOMERULAR FILTRATION RATE > 60.0 (>45); GLUCOSE, FASTING 85 MG/DL (74-106); HDL CHOLESTEROL 35.9 MG/DL (>40); LDL CHOLESTEROL 115.1 MG/DL (<100); NON-HDL-C 147 MG/DL; POTASSIUM SERUM 4.3 MMOL/L (3.5-5.1); SODIUM LEVEL 139 MMOL/L (136-145); TOTAL PROTEIN 6.7 G/DL (5.7-8.2); TRIGLYCERIDES LEVEL 160 MG/DL (<150)
[2022-08-10 08:11] LABS: CODEINE, URINE Negative (Cutoff=100); HYDROCODONE CONFIRM, URINE 532 ng/mL (Cutoff=100); HYDROCODONE, URINE Positive (.); HYDROMORPHONE CONFIRM, URINE 186 ng/mL (Cutoff=100); HYDROMORPHONE, URINE Positive (.); MORPHINE, URINE Negative (Cutoff=100); OPIATES, URINE Positive ng/mL (Cutoff=300)
== END ==
LOC: M SFHCADAM 11:33
PROVIDERS: ATTEND Physician Assistant Medical
DX: G89.4 Chronic pain syndrome (principal); E55.9 Vitamin D deficiency, unspecified; E78.00 Pure hypercholesterolemia, unspecified; Z79.899 Other long term (current) drug therapy

== ENCOUNTER → 2022-08-29 | Outpatient (CLI) | payer MEDICARE, MEDICAID, OTHER ==
[~2022-08-29] MED LIST changes: +ISOVUE-370 76% 100ML VIAL As Ordered ONE
== END ==
LOC: M RAD 11:52
PROVIDERS: ATTEND Physician Assistant Medical
DX: R68.84 Jaw pain (principal); R51.9 Headache, unspecified; H92.01 Otalgia, right ear

== ENCOUNTER → 2023-08-28 | Outpatient (REF) | payer MEDICARE, MEDICAID, OTHER ==
[~2023-08-28] MED LIST changes: -ISOVUE-370 76% 100ML VIAL As Ordered ONE; -LUNE2TAB23 PO; +LUNE2TAB28 PO
== END ==
LOC: M SFHCDERM 13:28
PROVIDERS: ATTEND Physician Assistant
DX: L82.1 Other seborrheic keratosis (principal)

== ENCOUNTER → 2024-01-16 | Outpatient (REF) | payer OTHER, MEDICAID ==
[2024-01-16 17:55] LABS: APPEARANCE, URINE CLEAR (CLEAR); BACTERIA, URINE AUTO NEGATIVE (NEGATIVE); BILIRUBIN, URINE AUTO NEGATIVE (NEGATIVE); BLOOD, URINE BLOOD 1+ (NEGATIVE); COLOR, URINE YELLOW (YELLOW); GLUCOSE, URINE (UA) AUTO NEGATIVE (NEGATIVE); KETONE, URINE AUTO NEGATIVE (NEGATIVE); LEUKOCYTE ESTERASE, URINE AUTO NEGATIVE (NEGATIVE); MUCUS, URINE SMALL (NEGATIVE); NITRITE, URINE AUTO NEGATIVE (NEGATIVE); PROTEIN, URINE AUTO NEGATIVE (NEGATIVE); RBC, URINE AUTO 1 /HPF (0-3); SQUAMOUS EPITHELIAL CELL UR AU 1 /HPF (0-6); UROBILINOGEN, URINE AUTO 0.2 mg/dL (0.0-2.0); WBC, URINE AUTO 1 /HPF (0-3)
== END ==
LOC: M SFHCADAM 16:56
PROVIDERS: ATTEND Physician Assistant
DX: R10.2 Pelvic and perineal pain (principal); R31.29 Other microscopic hematuria

== ENCOUNTER → 2024-01-20 | Outpatient (CLI) | payer OTHER | LOC: M WHC 08:24 | PROVIDERS: ATTEND Physician Assistant | DX: R10.2 Pelvic and perineal pain (principal); R10.814 Left lower quadrant abdominal tenderness; N85.8 Other specified noninflammatory disorders of uterus ==

== ENCOUNTER → 2024-01-22 | Outpatient (REF) | payer MEDICARE, MEDICAID, OTHER ==
[2024-01-22 13:54] LABS: APPEARANCE, URINE CLEAR (CLEAR); BACTERIA, URINE AUTO NEGATIVE (NEGATIVE); BILIRUBIN, URINE AUTO NEGATIVE (NEGATIVE); BLOOD, URINE BLOOD 1+ (NEGATIVE); COLOR, URINE YELLOW (YELLOW); GLUCOSE, URINE (UA) AUTO NEGATIVE (NEGATIVE); KETONE, URINE AUTO NEGATIVE (NEGATIVE); LEUKOCYTE ESTERASE, URINE AUTO NEGATIVE (NEGATIVE); NITRITE, URINE AUTO NEGATIVE (NEGATIVE); PROTEIN, URINE AUTO NEGATIVE (NEGATIVE); RBC, URINE AUTO 0 /HPF (0-3); SPECIFIC GRAVITY URINE AUTO 1.009 (1.002-1.035); SQUAMOUS EPITHELIAL CELL UR AU 1 /HPF (0-6); UROBILINOGEN, URINE AUTO 0.2 mg/dL (0.0-2.0); WBC, URINE AUTO 0 /HPF (0-3)
== END ==
LOC: M SMT 12:17
PROVIDERS: ATTEND Physician Assistant
DX: R31.21 Asymptomatic microscopic hematuria (principal)

== ENCOUNTER → 2024-01-23 | Outpatient (REF) | payer MEDICARE, MEDICAID, OTHER | LOC: M SFHCDERM 17:19 | PROVIDERS: ATTEND Physician Assistant | DX: C44.622 Squamous cell carcinoma of skin of right upper limb, including shoulder (principal) ==

== ENCOUNTER → 2024-02-10 | Outpatient (REF) | payer OTHER, MEDICAID ==
[2024-02-10 17:49] LABS: ALBUMIN 4.1 G/DL (3.2-5.2); ALKALINE PHOSPHATASE 109 U/L (46-116); ALT/SGPT 16 U/L (7.0-40); AST/SGOT 14 U/L (<34); BILIRUBIN,TOTAL 0.6 MG/DL (0.3-1.2); BLOOD UREA NITROGEN 11 MG/DL (9-23); CALCIUM LEVEL 9.5 MG/DL (8.3-10.6); CARBON DIOXIDE LEVEL 32 MMOL/L (20-31); CHLORIDE LEVEL 102 MMOL/L (98-107); CHOLESTEROL LEVEL 233 MG/DL (<200); CHOLESTEROL RISK RATIO 4.12 (<5); CREATININE FOR GFR 0.81 MG/DL (0.55-1.30); GLOMERULAR FILTRATION RATE > 60.0 (>45); GLUCOSE, FASTING 83 MG/DL (74-106); HDL CHOLESTEROL 56.5 MG/DL (>40); LDL CHOLESTEROL 141.3 MG/DL (<100); NON-HDL-C 176.5 MG/DL; POTASSIUM SERUM 4.6 MMOL/L (3.5-5.1); SODIUM LEVEL 137 MMOL/L (136-145); TOTAL PROTEIN 7.3 G/DL (5.7-8.2); TRIGLYCERIDES LEVEL 176 MG/DL (<150)
[2024-02-10 17:51] LABS: THYROID STIMULATING HORMONE 1.528 uIU/ML (0.55-4.78)
[2024-02-10 17:53] LABS: BASO # 0.1 10^3/uL (0.0-0.2); BASO % 0.6 % (0.0-1.0); EOS # 0.3 10^3/uL (0.0-0.5); EOS % 4.2 % (0.0-3.0); HEMATOCRIT 43.6 % (36.0-47.0); HEMOGLOBIN 14.1 g/dl (12.0-15.5); LYMPH # 2.1 10^3/uL (1.5-5.0); LYMPH % 25.5 % (24.0-44.0); MEAN CORPUSCULAR HEMOGLOBIN 31.2 pg (27.0-33.0); MEAN CORPUSCULAR HGB CONC 32.3 g/dl (32.0-36.5); MEAN CORPUSCULAR VOLUME 96.5 fl (80.0-96.0); MONO # 0.5 10^3/uL (0.0-0.8); MONO % 5.9 % (2.0-8.0); NEUTROPHILS # 5.2 10^3/uL (1.5-8.5); NEUTROPHILS % 63.6 % (36.0-66.0); PLATELET COUNT, AUTOMATED 259 10^3/uL (150-450); RED BLOOD COUNT 4.52 10^6/uL (4.00-5.40); WHITE BLOOD COUNT 8.2 10^3/uL (4.0-10.0)
[2024-02-10 18:34] LABS: HEMOGLOBIN A1c 4.9 % (4.0-6.0)
== END ==
LOC: M SFHCADAM 11:11
PROVIDERS: ATTEND Physician Assistant Medical
DX: F51.01 Primary insomnia (principal); F41.8 Other specified anxiety disorders; E66.01 Morbid (severe) obesity due to excess calories; E55.9 Vitamin D deficiency, unspecified; Z79.899 Other long term (current) drug therapy

== ENCOUNTER → 2024-02-18 | Outpatient (REF) | payer OTHER, MEDICARE, MEDICAID ==
[2024-02-20 15:22] LABS: HPV APTIMA Detected (Not Detected)
== END ==
LOC: M SFHCWAGY 13:43
PROVIDERS: ATTEND Obstetrics & Gynecology
DX: Z12.4 Encounter for screening for malignant neoplasm of cervix (principal)
CPT/HCPCS: 87624; G0123

== ENCOUNTER → 2024-02-18 | Outpatient (CLI) | payer OTHER | LOC: M WHC 10:16 | PROVIDERS: ATTEND Physician Assistant Medical | DX: Z12.31 Encounter for screening mammogram for malignant neoplasm of breast (principal) ==

== ENCOUNTER → 2025-04-06 | Outpatient (CLI) | payer MEDICARE, MEDICAID ==
[~2025-04-06] MED LIST changes: +MORP-138 PO; -MORP15TASA PO; -POTA10808 PO; +POTA10809 PO
== END ==
LOC: M ADAMS 14:26
PROVIDERS: ATTEND Physician Assistant Medical
DX: R31.9 Hematuria, unspecified (principal); R30.0 Dysuria

== ENCOUNTER → 2025-04-06 | Outpatient (REF) | payer MEDICARE, MEDICAID ==
[2025-04-06 19:31] LABS: APPEARANCE, URINE HAZY (CLEAR); BACTERIA, URINE AUTO 1+ (NEGATIVE); BILIRUBIN, URINE AUTO NEGATIVE (NEGATIVE); BLOOD, URINE BLOOD 2+ (NEGATIVE); GLUCOSE, URINE (UA) AUTO NEGATIVE (NEGATIVE); KETONE, URINE AUTO NEGATIVE (NEGATIVE); LEUKOCYTE ESTERASE, URINE AUTO 2+ (NEGATIVE); MUCUS, URINE SMALL (NEGATIVE); NITRITE, URINE AUTO NEGATIVE (NEGATIVE); PROTEIN, URINE AUTO NEGATIVE (NEGATIVE); RBC, URINE AUTO 12 /HPF (0-3); SPECIFIC GRAVITY URINE AUTO 1.009 (1.002-1.035); SQUAMOUS EPITHELIAL CELL UR AU 1 /HPF (0-6); UROBILINOGEN, URINE AUTO 0.2 mg/dL (0.0-2.0); WBC, URINE AUTO 63 /HPF (0-3)
== END ==
LOC: M SFHCADAM 17:00
PROVIDERS: ATTEND Physician Assistant Medical
DX: R31.9 Hematuria, unspecified (principal); R30.0 Dysuria